=== PATIENT | male | born 1960 | race Caucasian/White ===

== ENCOUNTER 2020-05-08 11:24 | Outpatient (REF) | payer OTHER, SELFPAY ==
[2020-05-08 14:23] LABS: MANUAL DIFF FLAG NO
[2020-05-08 14:32] LABS: Basophils Absolute Auto 0.1 X10*3/uL (0.0-0.2); Basophils Percent Auto 0.6 % (0-2); Eosinophils Absolute Auto 0.2 X10*3/uL (0.0-0.4); Eosinophils Percent Auto 2.1 % (0-4); Hemoglobin 14.1 g/dl (14.0-18.0); Imm Gran Abs Auto 0.02 X10*3/uL (0.00-0.03); Imm Gran Pct Auto 0.3 % (0.0-0.4); Lymphocytes Absolute Auto 1.1 X10*3/uL (1.2-4.9); Lymphocytes Percent Auto 13.3 % (20-40); Mean Corpuscular HGB Conc 32.8 g/dl (31.0-36.0); Mean Corpuscular Hemoglobin 30.9 pg (27.0-33.0); Mean Corpuscular Volume 94.3 fL (80-98); Mean Platelet Volume 10.8 fL (9.4-12.4); Monocytes Absolute Auto 1.1 X10*3/uL (0.1-1.2); Monocytes Percent Auto 14.1 % (2-11); Neutrophils Absolute Auto 5.5 X10*3/uL (2.0-8.3); Neutrophils Percent Auto 69.6 % (45-73); Platelet Count 230 X10*3/uL (160-400); Red Blood Count 4.56 X10*6/uL (4.60-5.80); Red Cell Distribution Width 13.1 % (11.0-16.0)
[2020-05-08 15:15] LABS: Alanine Aminotransferase 10 U/L (0-40); Albumin Level 4.1 g/dL (3.5-5.0); Alkaline Phosphatase 108 U/L (39-117); Anion Gap 13 (12-20); Aspartate Amino Transferase 15 U/L (5-37); Bilirubin Total 0.2 mg/dL (0.0-1.0); Blood Urea Nitrogen 12 mg/dL (9-16); Calcium 8.8 mg/dL (8.4-10.2); Carbon Dioxide 30 mmol/L (22-29); Chloride 105 mmol/L (96-108); Estimated Glomerular Filt Rate > 60; Glucose Fasting 64 mg/dL (60-99); Sodium 144 mmol/L (135-145); Total Protein 6.3 g/dL (6.5-8.0)
== END 2020-05-08 11:25 | disposition home or self-care (01) ==
LOC: HO.10HDL 11:24
PROVIDERS: Visit Provider Internal Medicine
DX: Z01.818 Encounter for other preprocedural examination (principal); F90.9 Attention-deficit hyperactivity disorder, unspecified type; J30.1 Allergic rhinitis due to pollen; C61 Malignant neoplasm of prostate
CPT/HCPCS: 36415; 80053; 85025

== ENCOUNTER 2020-05-22 16:23 | Outpatient (REF) | payer OTHER, SELFPAY | END 2020-05-22 16:24 | disposition home or self-care (01) | LOC: HO.LNP 16:23 | PROVIDERS: Visit Provider Internal Medicine | DX: Z01.812 Encounter for preprocedural laboratory examination (principal); Z20.828 Contact with and (suspected) exposure to other viral communicable diseases | CPT/HCPCS: U0003 ==

== ENCOUNTER 2020-05-25 14:01 | Outpatient (REF) | payer OTHER, SELFPAY ==
[2020-05-25 14:46] LABS: Influenza A PCR NEGATIVE (Negative); Influenza B PCR NEGATIVE (Negative); Resp Syncy Virus RNA Qual PCR NEGATIVE (Negative); SARS COV2 PCR INHOUSE NEGATIVE (Negative)
== END 2020-05-25 14:02 | disposition home or self-care (01) ==
LOC: HO.LNP 14:01
PROVIDERS: Visit Provider Internal Medicine
DX: Z01.818 Encounter for other preprocedural examination (principal)
CPT/HCPCS: 0241U

== ENCOUNTER 2021-07-27 11:52 | Outpatient (REF) | payer OTHER, SELFPAY ==
[2021-07-27 13:40] LABS: MANUAL DIFF FLAG NO
[2021-07-27 13:44] LABS: Basophils Percent Auto 0.4 % (0-2); Eosinophils Absolute Auto 0.1 X10*3/uL (0.0-0.4); Eosinophils Percent Auto 0.5 % (0-4); Hematocrit 42.4 % (42.0-52.0); Hemoglobin 13.4 g/dl (14.0-18.0); Imm Gran Abs Auto 0.03 X10*3/uL (0.00-0.03); Imm Gran Pct Auto 0.3 % (0.0-0.4); Lymphocytes Absolute Auto 0.7 X10*3/uL (1.2-4.9); Lymphocytes Percent Auto 7.3 % (20-40); Mean Corpuscular HGB Conc 31.6 g/dl (31.0-36.0); Mean Corpuscular Volume 91.8 fL (80.0-98.0); Mean Platelet Volume 10.6 fL (9.4-12.4); Monocytes Absolute Auto 0.8 X10*3/uL (0.1-1.2); Monocytes Percent Auto 8.6 % (2-11); Neutrophils Percent Auto 82.9 % (45-73); Platelet Count 263 X10*3/uL (160-400); Red Blood Count 4.62 X10*6/uL (4.60-5.80); Red Cell Distribution Width 14.4 % (11.0-16.0); White Blood Count 9.6 X10*3/uL (4.8-10.8)
[2021-07-27 14:14] LABS: Alanine Aminotransferase 9 U/L (0-40); Albumin Level 4.3 g/dL (3.5-5.0); Alkaline Phosphatase 106 U/L (39-117); Anion Gap 12 (12-20); Aspartate Amino Transferase 16 U/L (5-37); Bilirubin Total 0.4 mg/dL (0.0-1.0); Blood Urea Nitrogen 11 mg/dL (9-16); Calcium 9.3 mg/dL (8.4-10.2); Carbon Dioxide 28 mmol/L (22-29); Chloride 104 mmol/L (96-108); Cholesterol 171 mg/dL; Estimated Glomerular Filt Rate > 60; Glucose Fasting 97 mg/dL (60-99); HDL Cholesterol 57 mg/dL; LDL Cholesterol Calculated 101 mg/dl; Sodium 140 mmol/L (135-145); Total Protein 6.7 g/dL (6.5-8.0); Triglycerides 65 mg/dL
== END 2021-07-27 11:53 | disposition home or self-care (01) ==
LOC: HO.10HDL 11:52
PROVIDERS: Visit Provider Internal Medicine
DX: Z00.00 Encounter for general adult medical examination without abnormal findings (principal)
CPT/HCPCS: 36415; 80053; 80061; 85025

== ENCOUNTER 2021-12-17 13:46 | Outpatient (REF) | payer OTHER, SELFPAY ==
--- NOTE | ~2021-12-17 | XR_ITS ---
EXAMINATION: XR CHEST CLINICAL INFORMATION: Weight loss. COMPARISON: None TECHNIQUE: 2 views of the chest were obtained. FINDINGS: The lungs are well-expanded and clear. Heart size and pulmonary vascularity is normal. No gross bony abnormality seen. XR/XR chest 2V IMPRESSION: Unremarkable chest examination.
[2021-12-17 14:03] LABS: MANUAL DIFF FLAG NO
[2021-12-17 14:35] LABS: Basophils Percent Auto 0.2 % (0-2); Eosinophils Absolute Auto 0.1 X10*3/uL (0.0-0.4); Eosinophils Percent Auto 0.9 % (0-4); Hematocrit 36.9 % (42.0-52.0); Hemoglobin 11.9 g/dl (14.0-18.0); Imm Gran Pct Auto 0.9 % (0.0-0.4); Lymphocytes Absolute Auto 0.6 X10*3/uL (1.2-4.9); Lymphocytes Percent Auto 5.7 % (20-40); Mean Corpuscular HGB Conc 32.2 g/dl (31.0-36.0); Mean Corpuscular Hemoglobin 28.8 pg (27.0-33.0); Mean Corpuscular Volume 89.3 fL (80.0-98.0); Mean Platelet Volume 9.8 fL (9.4-12.4); Monocytes Absolute Auto 0.9 X10*3/uL (0.1-1.2); Monocytes Percent Auto 8.2 % (2-11); Neutrophils Percent Auto 84.1 % (45-73); Platelet Count 333 X10*3/uL (160-400); Red Blood Count 4.13 X10*6/uL (4.60-5.80); Red Cell Distribution Width 14.1 % (11.0-16.0); White Blood Count 10.8 X10*3/uL (4.8-10.8)
[2021-12-17 14:57] LABS: Alanine Aminotransferase 27 U/L (0-40); Albumin Level 3.6 g/dL (3.5-5.0); Alkaline Phosphatase 138 U/L (39-117); Anion Gap 13 (12-20); Aspartate Amino Transferase 16 U/L (5-37); Bilirubin Total 0.5 mg/dL (0.0-1.0); Blood Urea Nitrogen 9 mg/dL (9-16); C Reactive Protein 9.15 mg/dL (< or = 0.50); Calcium 8.6 mg/dL (8.4-10.2); Carbon Dioxide 29 mmol/L (22-29); Chloride 101 mmol/L (96-108); Cholesterol 139 mg/dL; Estimated Glomerular Filt Rate > 60; Glucose Random 97 mg/dL (60-115); Potassium 4.6 mmol/L (3.3-5.1); Sodium 138 mmol/L (135-145); Total Protein 6.2 g/dL (6.5-8.0)
[2021-12-17 15:24] LABS: Free T4 (Free Thyroxine) 0.98 ng/dL (0.71-1.85); Prostate Specific Antigen < 0.05 ng/mL (<0.05-4.0); Thyroid Stimulating Hormone 0.59 uIU/mL (0.32-4.0)
[2021-12-17 16:13] LABS: Vitamin B12 387 pg/mL (200-900)
[2021-12-20 17:32] LABS: Lyme Blot 2.36 index
[2021-12-21 08:36] LABS: Lyme Abs Screen POSITIVE
[2021-12-22 12:11] LABS: 18 KD (IgG) Band NON-REACTIVE; 23 KD (IgG) Band NON-REACTIVE; 23 KD (IgM) Band REACTIVE; 28 KD (IgG) Band NON-REACTIVE; 30 KD (IgG) Band NON-REACTIVE; 39 KD (IgM) Band NON-REACTIVE; 39KD (IgG) Band NON-REACTIVE; 41 KD (IgM) Band NON-REACTIVE; 41KD (IgG) Band REACTIVE; 45 KD (IgG) Band NON-REACTIVE; 58 KD (IgG) Band NON-REACTIVE; 66 KD (IgG) Band NON-REACTIVE; 93 KD (IgG) Band NON-REACTIVE; Lyme IgG Blot Interp NEGATIVE (NEGATIVE); Lyme IgM Blot Interp NEGATIVE (NEGATIVE)
== END 2021-12-17 13:47 | disposition home or self-care (01) ==
LOC: HO.LAB 13:46
PROVIDERS: PCP Internal Medicine; Visit Provider Internal Medicine
DX: Z12.5 Encounter for screening for malignant neoplasm of prostate (principal); R63.4 Abnormal weight loss; R53.83 Other fatigue; R61 Generalized hyperhidrosis; Z85.46 Personal history of malignant neoplasm of prostate
CPT/HCPCS: 36415; 71046; 80053; 82465; 82607; 84153; 84439; 84443; 85025; 86140; 86617; 86618

== ENCOUNTER 2021-12-20 15:11 | Outpatient (REF) | payer OTHER, SELFPAY ==
--- NOTE | ~2021-12-20 | XR_ITS ---
EXAMINATION: XR LUMBOSACRAL SPINE CLINICAL INFORMATION: Back pain. COMPARISON: Radiographs dated 09/12/2019. TECHNIQUE: AP and lateral views of the lumbar spine and lateral view of the lumbosacral junction. FINDINGS: There is bony demineralization. There is a mild to moderate lumbar levoscoliosis. At L2-L3, there is marked disc space narrowing and a 5 mm retrolisthesis. At L4-L5, there is marked disc space narrowing. The remaining disc spaces are relatively well-maintained. This multi-level lumbar spondylosis. The posterior elements are intact. The paravertebral soft tissues are unremarkable. XR/XR lumbar spine 2-3V IMPRESSION: 1. There is a mild to moderate lumbar levoscoliosis. 2. There is marked degenerative disc disease at L2-L3 and L4-L5.
== END 2021-12-20 15:12 | disposition home or self-care (01) ==
LOC: HO.XRAY 15:11
PROVIDERS: PCP Internal Medicine; Visit Provider Internal Medicine
DX: M54.9 Dorsalgia, unspecified (principal); R21 Rash and other nonspecific skin eruption; D64.9 Anemia, unspecified
CPT/HCPCS: 72100

== ENCOUNTER 2022-02-10 13:40 | Observation (INO) | payer OTHER, SELFPAY ==
--- NOTE | ~2022-02-10 | MR_ITS ---
EXAMINATION: MR BRAIN WITHOUT AND WITH CONTRAST CLINICAL INFORMATION: vascular lesion r temporal with acute diplopia COMPARISON: Same day CT head without contrast TECHNIQUE: Multiplanar multisequence MR imaging of the brain was obtained on the high field 1.5 [facility] MRI unit without and following the administration of 7.5 mL Gadavist intravenous contrast. FINDINGS: Corresponding to the region of hyperdensity in the right parietal lobe, there is a heterogeneous and predominantly T2 hypointense lesion which appears lobulated and possibly reflects clustering of several lesions. This demonstrates areas of intrinsic T1 hyperintensity and no definite intralesional enhancement. There is enhancement of a medullary vein along the deep aspect of the lesion as well as an asymmetrically prominent adjacent cortical vessel, possibly reflecting the presence of a developmental venous anomaly. Susceptibility weighted imaging demonstrates significant blooming. Imaging findings are in keeping with one or multiple clustered cavernoma. There are no prominent arterial feeders to suggest an arterial venous malformation. No perilesional edema to suggest recent hemorrhage. There is a lesion measuring up to 1.1 cm with similar imaging characteristics in the left dorsal marcelino, also likely representing a cavernoma. Additional scattered foci of susceptibility artifact involving the supratentorial brain and left cerebellar hemisphere may reflect additional cavernoma and/or remote microhemorrhage. There is no acute infarct on diffusion-weighted imaging. There is no hydrocephalus, extra-axial collection, or herniation. Mild microangiopathic supratentorial white matter signal changes. Proportional prominence of the ventricles and sulcal spaces without evidence of obstructive hydrocephalus. No abnormal parenchymal or extra-axial enhancement. The major flow voids at the skull base are preserved. The midline structures are normal. The cerebellar tonsils are normally positioned. The craniocervical junction is normal. Marrow signal is within normal limits. The visualized soft tissues are without significant abnormality. No signal abnormality within the paranasal sinuses or within the mastoid air cells. MR/MR head/brain wo/w con IMPRESSION: 1. 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 No perilesional edema to suggest recent hemorrhage. 2. 1.1 cm lesion in the left dorsal marcelino also demonstrates imaging characteristics compatible with cavernoma. 3. There are multiple additional foci of susceptibility artifact in the supratentorial brain and one in the left cerebellar hemisphere which are also suspicious for cavernoma. Correlate for cavernomatosis or history of radiation therapy as possible etiologies.
--- NOTE | ~2022-02-10 | CT_ITS ---
EXAMINATION: CT HEAD WITHOUT CONTRAST CLINICAL INFORMATION: Diplopia COMPARISON: None TECHNIQUE: Contiguous axial imaging was performed from the skull base to vertex without intravenous administration of contrast. This CT examination was performed using dose optimization techniques as appropriate, variously including the following: *Automated exposure control *Adjustment of mA and/or kV according to patient size (this includes techniques or standardized protocols for targeted exams where dose is matched to indication/reason for exam; i.e. extremities or head) *Use of iterative reconstruction technique DLP: 764 mGy-cm FINDINGS: There is a 5 mm hypodensity likely calcification or combination of calcification bleed measuring 92 Hounsfield units in the deep right parietal lobe. There is surrounding the hypodensity extending to subjacent cortex and measuring 72 Hounsfield units there is very little to no mass effect on the adjacent cortical sulci. There are no additional areas of hyperdensity, edema or midline shift. The cortical sulci are maintained normal and symmetrical. The boone to white matter differentiation is maintained normal. There is no extra-axial fluid, hemorrhage. Imaging through the posterior fossa reveals a punctate hyperdensity in the left posterior marcelino and anterior to the fourth ventricle. Bone windows reveal no calvarial abnormality. There is no scalp soft tissue abnormality. Bilateral paranasal sinuses and mastoid air cells are well-aerated. CT/CT head/brain wo con IMPRESSION: 2 hypodense lesions in the right deep parietal lobe extending superiorly to the cortex but no mass effect seen. There is a second lesion in the posterior marcelino anterior to the fourth ventricle. Differential diagnoses includes hemorrhage or hemorrhagic or hyperdense vascular lesion, such as a capillary/cavernous hemangioma or vascular formation.. There is no edema or mass effect. Recommend MRI brain with and without contrast for further evaluation.
[2022-02-10 14:09] VITALS: BP 134/81; PULSE 93; RESP 18; TEMP 36.8; O2SAT 97; BMI 22.1
[2022-02-10 18:13] VITALS: BP 138/86; PULSE 70; RESP 16; O2SAT 100
--- NOTE | 2022-02-10 18:19 | ECG_ITS ---
Test Reason : ams Blood Pressure : / mmHG Vent. Rate : 064 BPM Atrial Rate : 064 BPM P-R Int : 128 ms QRS Dur : 080 ms QT Int : 410 ms P-R-T Axes : 045 052 047 degrees QTc Int : 422 ms Normal sinus rhythm Normal ECG No previous ECGs available Referred By: Harvey óLpez Electronically Signed By:NAIMA BOUCHER
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
[2022-02-10 19:31] LABS: Hematocrit 41.5 % (42.0-52.0); Hemoglobin 13.2 g/dl (14.0-18.0); Mean Corpuscular HGB Conc 31.8 g/dl (31.0-36.0); Mean Corpuscular Hemoglobin 27.5 pg (27.0-33.0); Mean Corpuscular Volume 86.5 fL (80.0-98.0); Mean Platelet Volume 10.2 fL (9.4-12.4); Platelet Count 237 X10*3/uL (160-400); Red Cell Distribution Width 14.7 % (11.0-16.0); White Blood Count 8.1 X10*3/uL (4.8-10.8)
[2022-02-10 19:40] LABS: Prothrombin Time 11.5 SEC (10.0-13.1)
[2022-02-10 19:48] LABS: Alanine Aminotransferase 25 U/L (0-40); Albumin Level 4.3 g/dL (3.5-5.0); Alkaline Phosphatase 104 U/L (39-117); Anion Gap 16 (12-20); Aspartate Amino Transferase 18 U/L (5-37); Bilirubin Total 0.4 mg/dL (0.0-1.0); Blood Urea Nitrogen 11 mg/dL (9-16); Calcium 9.1 mg/dL (8.4-10.2); Carbon Dioxide 27 mmol/L (22-29); Chloride 104 mmol/L (96-108); Creatinine Clr Calc Pharmacy 77.1; Estimated Glomerular Filt Rate > 60; Glucose Random 95 mg/dL (60-115); Potassium 5.4 mmol/L (3.3-5.1); Sodium 142 mmol/L (135-145); Total Protein 6.5 g/dL (6.5-8.0)
[2022-02-10 19:49] LABS: COVID-19 Test Negative (Negative)
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
[2022-02-10] MEDS: Enoxaparin Sodium 40 MG/0.4 ML SYRINGE SUBCUT (22:51)
[2022-02-10] MEDS: levETIRAcetam 500 MG TABLET PO (22:51)
[2022-02-10 23:30] VITALS: BP 135/82; PULSE 98; RESP 16; O2SAT 97
--- NOTE | 2022-02-11 | EEG_ITS ---
The waking background activity consists of low voltage fast frequencies seen diffusely, intermixed with posterior 9 to 10 hertz low-voltage alpha. Photic stimulation is without activation. Hyperventilation was omitted. No sleep stages were identified. No focal, lateralizing, or paroxysmal discharges were seen. IMPRESSION: This waking EEG is within normal limits. MD HAYLEE Hernandez/SANDRA / [id number]
[2022-02-11 04:17] VITALS: BP 128/85; PULSE 66; RESP 15; O2SAT 98
[2022-02-11 06:23] VITALS: BP 134/88; PULSE 65; RESP 15; O2SAT 95
[2022-02-11 06:49] LABS: MANUAL DIFF FLAG NO
[2022-02-11 07:03] LABS: Basophils Absolute Auto 0.1 X10*3/uL (0.0-0.2); Basophils Percent Auto 1.3 % (0-2); Eosinophils Absolute Auto 0.1 X10*3/uL (0.0-0.4); Eosinophils Percent Auto 2.2 % (0-4); Hematocrit 39.7 % (42.0-52.0); Hemoglobin 12.4 g/dl (14.0-18.0); Imm Gran Abs Auto 0.02 X10*3/uL (0.00-0.03); Imm Gran Pct Auto 0.4 % (0.0-0.4); Lymphocytes Absolute Auto 1.4 X10*3/uL (1.2-4.9); Lymphocytes Percent Auto 25.5 % (20-40); Mean Corpuscular HGB Conc 31.2 g/dl (31.0-36.0); Mean Corpuscular Hemoglobin 26.8 pg (27.0-33.0); Mean Corpuscular Volume 85.7 fL (80.0-98.0); Mean Platelet Volume 10.5 fL (9.4-12.4); Monocytes Absolute Auto 0.7 X10*3/uL (0.1-1.2); Monocytes Percent Auto 13.3 % (2-11); Neutrophils Absolute Auto 3.1 x10*3/uL (2.0-8.3); Neutrophils Percent Auto 57.3 % (45-73); Platelet Count 228 X10*3/uL (160-400); Red Blood Count 4.63 X10*6/uL (4.60-5.80); Red Cell Distribution Width 14.8 % (11.0-16.0); White Blood Count 5.5 X10*3/uL (4.8-10.8)
[2022-02-11 07:35] LABS: Anion Gap 13 (12-20); Blood Urea Nitrogen 13 mg/dL (9-16); Calcium 8.6 mg/dL (8.4-10.2); Carbon Dioxide 28 mmol/L (22-29); Chloride 105 mmol/L (96-108); Creatinine Clr Calc Pharmacy 71.9; Estimated Glomerular Filt Rate > 60; Glucose Random 93 mg/dL (60-115); Potassium 4.5 mmol/L (3.3-5.1); Sodium 141 mmol/L (135-145)
--- NOTE | 2022-02-11 07:52 | PHA.MEDREC ---
Pharmacy Consult ? Medication Reconciliation Pharmacy has completed the medication reconciliation. Patient was a great historian. Important to note, patient takes lion's lena OTC every day, however this supplement is not in our system.
[2022-02-11 08:22] VITALS: BP 119/69; PULSE 78; RESP 15; O2SAT 99
[2022-02-11] MEDS: levETIRAcetam 500 MG TABLET PO (11:26)
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
[2022-02-11 14:36] VITALS: BP 116/72; PULSE 79; RESP 18; O2SAT 96
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
== END 2022-02-11 17:10 | disposition home or self-care (01) ==
LOC: HO.ED 22:05 → HO.EDOVER 22:26
PROVIDERS: Admitting Provider Internal Medicine; Emergency Provider Internal Medicine; PCP Internal Medicine; Visit Provider Family Medicine
DX: R41.0 Disorientation, unspecified (principal); H53.2 Diplopia; D18.00 Hemangioma unspecified site; G93.9 Disorder of brain, unspecified; Z20.822 Contact with and (suspected) exposure to COVID-19; F17.200 Nicotine dependence, unspecified, uncomplicated; F12.90 Cannabis use, unspecified, uncomplicated; Z85.46 Personal history of malignant neoplasm of prostate; Z79.899 Other long term (current) drug therapy
CPT/HCPCS: 36415; 70450; 70553; 80048; 80053; 85025; 85027; 85610; 87635; 93005; 95816; 96372; 96374; 99219; 99285; A9585; J1650

== ENCOUNTER 2022-03-01 12:34 | Outpatient (REF) | payer OTHER, SELFPAY ==
--- NOTE | 2022-03-01 12:40 | EEG_ITS ---
Waking background activity consists of low voltage fast frequencies seen diffusely, intermixed with low voltage, 10 hertz posterior alpha intermixed with muscle artifacts anteriorly. Drowsiness is characterized with diffuse theta slowing. During sleep, symmetrical frontocentral sleep spindles develop over both hemispheres. K complexes and deeper stages of sleep are noted. Arousals are frequent and unremarkable. No focal, lateralizing, or paroxysmal discharges are seen. The patient remains asymptomatic. IMPRESSION: This 24-hour ambulatory EEG is within normal limits. MD HAYLEE Hernandez/SANDRA / [id number]
== END 2022-03-01 12:35 | disposition home or self-care (01) ==
LOC: HO.NEURO 12:34
PROVIDERS: PCP Internal Medicine; Visit Provider Psychiatry & Neurology Neurology
DX: D18.01 Hemangioma of skin and subcutaneous tissue (principal)
CPT/HCPCS: 95708; 95957

== ENCOUNTER 2023-07-05 11:54 | Outpatient (REF) | payer OTHER, SELFPAY | END 2023-07-05 11:55 | disposition home or self-care (01) | LOC: HO.LAB 11:54 | PROVIDERS: PCP Internal Medicine; Visit Provider Internal Medicine | DX: D64.9 Anemia, unspecified (principal); G40.909 Epilepsy, unspecified, not intractable, without status epilepticus | CPT/HCPCS: 36415; 80053; 81003; 83540; 84153; 85025 ==

== ENCOUNTER 2025-03-19 13:53 | Outpatient (AMB) | payer MEDICARE, SELFPAY ==
--- NOTE | 2025-03-19 13:56 | A.OFFPC_ITS ---
Vital Signs 03/19/25 14:02 Height 5 ft 9 in Weight 165 lb BMI 24.4 BP 124/64 Blood Pressure Location Rt brachial Position Sitting Respiration 18 Pulse 74 Pulse Source Pulse Oximeter Temp 97.8 F Temp Source Temporal Artery Scan Pulse Oximetry (%) 99 Oxygen Delivery Method Room Air Intake Visit Reasons: Physical - Croke pt. Auto Electrical Technician Required: No Accompanied by: Self / Same As Patient Allergies No Known Allergies (No Known Allergies*) Allergy (Verified 03/19/25 13:56) Medication List - Last Reconciled 03/19/25 by Jameson Moody MD multivitamin 1 tab PO DAILY Tobacco use date assessed: 03/19/25 Dental Screening Dental Screen Date: 03/19/25 Did you have a dental visit in the last 12 months?: No Did you have a dental problem in the last 6 months where you did not have access to dental care?: No Was dental information given to patient?: Patient has dentist HPI HPI Comments History of Present Illness Details The patient is a 65-year-old male presenting with a follow-up for prostate cancer, a request for a PSA test, and management of erectile dysfunction and urinary incontinence. The patient believes this year rizo five years since the diagnosis and treatment for prostate cancer with a radical prostatectomy, which he underwent following the presentation of a Yelitza score of 7. Postoperatively, he states his PSA levels were undetectable, primarily less than 0.1 ng/mL. Alongside monitoring prostate cancer status, he expresses an interest in resuming sildenafil for erectile dysfunction, which he associates with improved continence, describing a perceived link in symptomatic relief. He contends daily use was beneficial, although aware it may exacerbate hypotension, which he notes is not currently a concern without history of hypertension. Historically, the patient experienced partial seizures in correlation with the usage of lamotrigine, reportedly coinciding with high-stress instances and inappropriate dosage timing. He currently abstains from the medication. Additionally, he has a notable neurological history of cerebral cavernomas identified as congenital, with imaging initially repeated after seizures showing no change. Monitoring protocol by his neurologist was every five years. Psychiatric history includes diagnoses of Complex PTSD, Major Depressive Disorder, and ADHD. PTSD was recognized approximately five years ago, following evaluation influenced by clinician observations. He previously attempted multiple medications for anxiety and depression without enduring success, including trazodone, while noting effectiveness from self-administered psilocybin therapy, praising its impact on mental health, anxiety, and sleep quality. 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 - Cerebral cavernomas (congenital) - Complex Post-Traumatic Stress Disorder (CPTSD) - Major Depressive Disorder - Attention Deficit Hyperactivity Disord er (ADHD) - Anxiety disorder - Dyslexia Surgical History: - Radical prostatectomy Medications: - Psilocybin 0.5 mg, 5 days on, 2 days o ff for mood stabilization and sleep (self-administered) Family History: - Colon cancer in multiple family member s - Heart disease with bypass surgery on t he mother's side - Brother with prediabetes Diagnostic Results: - PSA level < 0.1 ng/mL (undetectable fr om last year?s test) - Cerebral cavernomas (stable on imaging ) - Colonoscopy every five years since age 33 Social: - Employment: Previously in the [employer] for 25 years, currently works with traumatic brain injury (TBI) patients - Housing: Resides in [facility] a safe living environment - Tobacco use: Historical use, now uses nicotine pouches, denied smoking - Alcohol use: Denies alcohol use for th e past 10 years - Substance use: Historical prescription medication use, current psilocybin use for psychiatric disorders - Functional status: Active in performin g urinary exercises and maintaining functional independence - Family status: No details provided [facility] Medical History (Updated 03/19/25 @ 14:30 by Jameson Moody MD) Urinary incontinence Erectile dysfunction PTSD (post-traumatic stress disorder) Establishing care with new doctor, encounter for History of prostate cancer Surgical History (Updated 02/11/22 @ 06:25 by Flavio Gagnon MD) History of prostatectomy Family History (Updated 02/11/22 @ 06:26 by Flavio Gagnon MD) Other No family history of coronary artery disease Social History Housing: Apartment Alcohol intake: never Patient Tobacco Use Status: Current everyday Tobacco user (nicotine pouches) e-Cigarette/Vaping Use: Never Used Substance Use Type: Marijuana service: No Current occupational status: employed Current occupation: [employer] Questionnaire PHQ-9 Over the last 2 weeks, how often have you been bothered by any of the following problems? 1. Little interest or pleasure in doing things: not at all 2. Feeling down, depressed, or hopeless: not at all 3. Trouble falling or staying asleep, or sleeping too much: not at all 4. Feeling tired or having little energy: not at all 5. Poor appetite or overeating: not at all 6. Feeling bad about yourself - or that you are a failure or have let yourself or your family down: not at all 7. Trouble concentrating on things, such as reading the newspaper or watching television: not at all 8. Moving or speaking so slowly that other people could have noticed. Or the opposite - being so fidgety or restless that you have been moving around a lot more than usual: not at all 9. Thoughts that you would be better off or of hurting yourself in some way: not at all Total score: 0 Depression Screening Interpretation: Negative Depression Screening Done: Yes 77551 - PHQ-9 Billing: Yes Source: Developed by Drs. Phillip Rendon, Josephine Myers, Baljeet Fernandez and colleagues, with an educational oniel from [employer]. Thrive Questionnaire Date Thrive assessed: 03/19/25 I am a: Patient What is your living situation today?: I have a steady place to live Within the past 12 months, did the food you bought not last and you didn't have the money to get more?: Never true Within the past 12 months, did you worry whether your food would run out before you got money to buy more?: Never true Do you have trouble paying for medicines?: No Do you have trouble getting transportation to medical appointments?: No Do you have trouble paying your heating and electricity bill?: No Do you have trouble taking care of your child, family member or friend?: No Do you have trouble with day-to-day activities such as bathing, preparing meals, shopping, managing finances, etc.?: No Are you currently unemployed and looking for a job?: No Are you interested in more education?: No THRIVE Score: 0 AUDIT C Alcohol Use Questionnaire (AUDIT-C) 1. How often do you have a drink containing alcohol?: Never 3. How often do you have six or more drinks on one occasion?: Never Total Score: 0 Score Reviewed/Action Taken: Yes ROB-7 AMB Questionnaire ORB-7 Date ROB - 7 assessed: 03/19/25 Feeling nervous, anxious, or on edge: 0 = Not at all Not being able to stop or control worryin = Not at all Worrying too much about different things: 0 = Not at all Trouble relaxin = Not at all Being so restless that it is hard to sit still: 0 = Not at all Becoming easily annoyed or irritable: 0 = Not at all Feeling afraid as if something awful might happen: 0 = Not at all Total ROB-7 score (0-4 normal; 5-9 mild; 10-14 moderate; 15-21 severe): 0 Source: Developed by Drs. Phillip Rendon, Josephine Myers, Baljeet Fernandez and colleagues, with an educational oniel from [employer]. ROB-7 Assessment Billing ROB-7 Assessment Tool: ROB-7 Assessment 04356 Review of Systems Const Details: - Genitourinary: Reports urinary incontinence and erectile dysfunction - Neurological: Denies seizures since lamotrigine discontinuation, has history of partial seizures - Psychiatric: Reports history of depression, PTSD, and ADHD All systems reviewed & are unremarkable except as reviewed in HPI and above Physical exam (Primary Care) Vital Signs: Last Vital Signs Temp 97.8 F 03/19/25 14:02 Pulse 74 03/19/25 14:02 Resp 18 03/19/25 14:02 BP 124/64 03/19/25 14:02 Pulse Ox 99 03/19/25 14:02 Oxygen Delivery Method Room Air 03/19/25 14:02 BMI result Body Mass Index 24.4 Tobacco/Smoking Status: Tobacco use Status Tobacco use date assessed 03/19/25 03/19/25 14:04 Patient Tobacco Use Status Current everyday Tobacco ( 03/19/25 14:04 nicotine pouches) e-Cigarette/Vaping Use Never Used 03/19/25 14:04 Depression Screening Interpretation: Negative Const Other: General: +Alert and oriented, Well nourished, No acute distress. Eye: Pupils are equal, round and reactive to light, Intact accommodation, Extraocular movements are intact, Normal conjunctiva, Vision unchanged. HENT: Normocephalic, Atraumatic, Tympanic membranes are clear, Normal hearing, Oral mucosa is moist, No pharyngeal erythema, Ear canals patent. Respiratory: Lungs CTA bilaterally, No wheeze, Respirations are non-labored. Cardiovascular: Regular rate, Regular rhythm, S1 auscultated, S2 auscultated, No murmur, Good pulses equal in all extremities, Normal peripheral perfusion, No edema. Gastrointestinal: Soft, Non-tender, Non-distended, Normal bowel sounds, No organomegaly. Musculoskeletal: Normal range of motion, Normal strength, No tenderness, No swelling, No deformity, Normal gait. Integumentary: Warm, Dry, Daphne, Intact. Neurologic: Alert, Oriented, Normal sensory, Normal motor function, No focal defects, Cranial Nerves II-XII are grossly intact, Normal deep tendon reflexes. Psychiatric: Cooperative, Appropriate mood & affect, Normal judgment. Coding Level of Care Code New Pt Level 4 (72652) New Pt Prev Care 40-64y(34140) Diagnoses Establishing care with new doctor, encounter for Z76. Seizure R56.9 Cavernoma D18.00 PTSD (post-traumatic stress disorder) F43.10 History of prostate cancer Z85.46 Erectile dysfunction after radical prostatectomy N52.31 Erectile dysfunction type: post-procedural Post-procedural erectile dysfunction type: following radical prostatectomy Urinary incontinence, unspecified type R32 Urinary Incontinence type: unspecified incontinence Additional Codes PHQ-9 - 02865 - PHQ-9 Billing: Yes ([id number]) ROB-7 Assessment Billing - ROB-7 Assessment Tool: ROB-7 Assessment 30977 ([id number]) Assessment & Plan Assessment & Plan (1) Establishing care with new doctor, encounter for: Comment: - Obtain baseline labs Code(s): Z76.89 - Persons encountering health services in other specified circumstances Category: Medical (2) Seizure: Comment: - Reviewed history, noted presumed lamotrigine correlation. - Continue monitoring without anticonvulsant medication. - Maintain periodic neurological evaluations every five years per neurologist. Code(s): R56.9 - Unspecified convulsions Category: Medical (3) Cavernoma: Comment: - Continued monitoring every 5 years per neurology Code(s): D18.00 - Hemangioma unspecified site Category: Medical (4) PTSD (post-traumatic stress disorder): Comment: - Discussed patient's positive response to microdose psilocybin therapy (self-a dministered). - Acknowledged patient's reports of improved anxiety and mental health following treatment. Code(s): F43.10 - Post-traumatic stress disorder, unspecified Category: Medical (5) History of prostate cancer: Comment: - Plan to further monitor PSA levels to ensure stability and absence of disease recurrence. - Order PSA test as requested by the patient. Code(s): Z85.46 - Personal history of malignant neoplasm of prostate Category: Medical (6) Erectile dysfunction: Comment: - Discussed sildenafil benefits and risks, noting its potential impact on blood pressure. - Patient interested in tadalafil; prescription provided as patient reports no effect with sildenafil. Code(s): N52.9 - Male erectile dysfunction, unspecified Category: Medical Qualifiers: Erectile dysfunction type: post-procedural Post-procedural erectile dysfunction type: following radical prostatectomy Qualified Code(s): N52.31 - Erectile dysfunction following radical prostatectomy (7) Urinary incontinence: Comment: - Recommended behavioral modifications with scheduled voiding for bladder control. - Patient to engage in pelvic exercises; further pharmacological treatment was not deemed beneficial according to current evidence discussed. (Wanting tadalafil for urinary incontience) Code(s): R32 - Unspecified urinary incontinence Category: Medical Qualifiers: Urinary Incontinence type: unspecified incontinence Qualified Code(s): R32 - Unspecified urinary incontinence Plan: Health Maintenance: - Colonoscopy due every five years; order as next procedure is overdue. - Screenings and labs including hepatitis, HIV, cholesterol, TSH, and vitamin D, to ensure comprehensive preventative care. Plan During the consultation, we discussed the patient's primary concerns related to follow-up care post-prostate cancer treatment, including PSA monitoring and long-term management. We addressed erectile dysfunction and urinary incontinence, elucidating the role of pharmacotherapy, particularly tadalafil, while emphasizing non-pharmacologic approaches for incontinence. Our conversation touched on his use of psilocybin as an alternative therapy for psychiatric disorders, recognizing its unconventional status but acknowledging reported efficacy and ensuring the patient is stable. I provided detailed insights into the implications of medication choices, particularly emphasizing the importance of blood pressure monitoring with PDE5 inhibitors. I also addressed health maintenance priorities, including the necessity of a colonoscopy in light of his family history and the scheduled lab work to establish a comprehensive health baseline. Follow-up arrangements were scheduled, ensuring continuity of care and timely health interventions. Orders: Orders Hepatitis A,B,C Profile Today Z76.89 - Persons encountering health services in other specified circumstances HIV Ab/Ag Today Z76.89 - Persons encountering health services in other specified circumstances Syphilis Screen Today Z76.89 - Persons encountering health services in other specified circumstances Complete Blood Count Auto Diff Today Z76.89 - Persons encountering health services in other specified circumstances Comprehensive Met. Panel Today Z76.89 - Persons encountering health services in other specified circumstances Hemoglobin A1c Today Z76.89 - Persons encountering health services in other specified circumstances Lipid Panel Today Z76.89 - Persons encountering health services in other specified circumstances TSH reflex Free T4 Today Z76.89 - Persons encountering health services in other specified circumstances Vitamin D 25-OH Total Today Z76.89 - Persons encountering health services in other specified circumstances PSA,Total (Free>4and<10) Today Z76.89 - Persons encountering health services in other specified circumstances Referrals Open Access Screening Colonoscopy Referral Z12.11 - Encounter for screening for malignant neoplasm of colon, Z76.89 - Persons encountering health services in other specified circumstances Medications: New tadalafil (Cialis) administer approximately 30min before sexual activity; do not use more than 1 dose per 24hrs 10 mg PO DAILY PRN 20 tabs 0RF sexual activity Discontinued lamotrigine Discontinued Reason: Patient Completed Course 100 mg PO BID 60 tabs 0RF Patient Instructions: - Continue monitoring PSA levels as advised; await lab results. - Engage in behavioral exercises to manage urinary incontinence; scheduled voiding is encouraged. - Use tadalafil as prescribed; notify if issues arise. - Prioritize upcoming colonoscopy scheduling. - Maintain safety and report any changes in mood or health right away. - Follow up in six months for a comprehensive review of health status.
[2025-03-19 14:02] VITALS: BP 124/64; PULSE 74; RESP 18; TEMP 36.6; O2SAT 99; BMI 24.4
--- OUTSIDE RECORDS SUMMARY | 2025-03-19 17:33 | XMS_ITS | Encounter Summary ---
Author Organization [facility] Address [address] [place] [address] Care Team Providers Care Rn Oncology Clinical Name Role Phone Olivier Jimenez MD Primary Care Provider [phone] Cindy Kent PhD Unavailable Reason for Visit * Reason Comments Other Encounter Details Date Type Department Care Team ([facility] st Contact Info) Description 05/05/2020 Telephone [facility] Urologic Surgery [address] [address] Lincoln Lezama MD [address] [id number] Other Social History Tobacco Use Types Packs/Day Years Used Date Smoking Tobacco: Former Smokeless Tobacco: Never Alcohol Use Standard Drinks/Week Comments Not Currently 0 (1 standard drink = 0.6 oz pur e alcohol) none in 3 years Sex and Gender Information Value Date Recorded Sex Assigned at Not on file Legal Sex Male 3:20 PM EDT Gender Identity Not on file Sexual Orientation Not on file COVID-19 Exposure Response Date Recorded In the last month, have you been in contact with someone who was confirmed or suspected to have Coronavirus / COVID-19? Unable to assess 05/05/2020 12:37 PM EST documented as of this encounter Plan of Treatment Not on file documented as of this encounter Visit Diagnoses Not on filedocumented in this encounter Care Teams Rn Oncology Clinical Relationship Specialty Start Date End Date Olivier Jimenez MD [address] [place] [address] [place] [address] PCP - General 01/22/20 Cindy Kent, PhD [address] [place] [address] Psychology 06/15/20 documented as of this encounter
--- OUTSIDE RECORDS SUMMARY | 2025-03-19 17:33 | XMS_ITS | Clinical Summary ---
Author Organization [facility] Address [address] [address] Phone Care Team Providers Care Health Center Assistant Name Role Phone Unknown, Unknown Primary Care Provider Bessie blood Allergies No known active allergies Medications * This document contains information received from the source organization and may not represent a complete record from that organization. traZODone (DESYREL) 50 MG tablet Take 1 tablet (50 mg total) by mouth nightly. 30 tablet 06/25/2017 Active venlafaxine (EFFEXOR-XR) 150 MG 24 hr capsule Take 1 capsule (150 mg total) by mouth daily. 30 capsule 06/25/2017 Active nicotine polacrilex (NICORETTE) [address] 1 each (2 mg total) inside cheek every 2 (two) hours as needed for smoking cessation. 100 each 06/25/2017 Active folic acid (FOLVITE) 1 MG tablet Take 1 tablet (1 mg total) by mouth daily. 30 tablet 06/25/2017 Active multivitamin per tablet Take 1 tablet by mouth daily. 30 tablet 06/25/2017 Active Active Problems Problem Noted Date Diagnosed Date Severe major depression 06/16/2017 Alcohol dependence 06/16/2017 Social History Tobacco Use Types Packs/Day Years Used Date Smoking Tobacco: Former Smokeless Tobacco: Current Alcohol Use Standard Drinks/Week Comments Yes 0 (1 standard drink = 0.6 oz pur e alcohol) several per day Education Answer Date Recorded Are you interested in more education? Not on iker e 10/28/2022 Are you concerned about learning? Not on file 10/28/2022 No 10/28/2022 No 10/28/2022 Digital Access Answer Date Recorded No 11/26/2022 No 11/26/2022 No 11/26/2022 Reliable internet access at home? Not on file 11/26/2022 Device with a working camera? Not on file Sex and Gender Information Value Date Recorded Sex Assigned at Not on file Legal Sex Male 4:59 PM EST Gender Identity Not on file Sexual Orientation Not on file Last Filed Vital Signs Vital Sign Reading Time Taken Comments Blood Pressure 149/91 06/24/2017 8:22 AM EST Pulse 92 06/24/2017 8:22 AM EST Temperature 36.7 C (98.1 F) 06/24/2017 8:22 AM EST Respiratory Rate 16 06/24/2017 8:22 AM EST Oxygen Saturation 97% 06/24/2017 8:22 AM EST Inhaled Oxygen Concentration - - Weight 72.6 kg (160 lb) 06/20/2017 11:00 PM EST Height 172.7 cm (5' 7.99 ) 06/16/2017 1:23 AM ES T Body Mass Index 24.33 06/16/2017 1:23 AM EST Plan of Treatment Health Maintenance Due Date Last Done Comments LIPID PANEL 1962 DEPRESSION SCREENING 1974 SMOKING Hx and SMOKELESS TOBACCO SCREENING 1975 HEPATITIS C SCREENING 01/05/1980 HIV ONE-TIME SCREENING (18-6 5 YEARS) 01/05/1980 COLOGUARD 2007 COLONOSCOPY 2007 COLORECTAL CANCER SCREENING 2007 FIT TEST 2007 FOBT 2007 SIGMOIDOSCOPY 2007 VIRTUAL COLONOSCOPY 2007 PNEUMOCOCCAL VACCINES (50+ years) (1 of 1 - PCV) 01/05/2012 ZOSTER VACCINES (2 of 2) 10/30/2020 09/04/2020 Adult Td,Tdap Booster 07/30/2022 07/30/2012 , 07/05/2001 INFLUENZA VACCINE (#1) 2025 COVID-19 VACCINE (3 - 2024-2 6 season) 2025 08/10/2020, 07/20/2020 RSV VACCINE (1 - 1-dose 75+ series) 2037 HEPATITIS A VACCINES Aged Out No long er eligible based on patient's age to complete this topic HIB VACCINES Aged Out No longer eligi ble based on patient's age to complete this topic MENINGOCOCCAL VACCINES (ACWY) Aged Out No longer eligible based on patient's age to complete this topic MENINGOCOCCAL VACCINES (B) Aged Out N o longer eligible based on patient's age to complete this topic Medical Devices Not on file Insurance [employer] [employer] [place] [employer] [place] [employer] [place] [employer] [employer] [employer] [facility] Advance Directives For more information, please contact: [phone] (9AM - 5PM [facility], Monday-Monday) * Full Code (Presumed) (Latest Code Status on File) Date Activated Date Inactivated Comments 06/16/2017 12:25 AM 06/25/2017 12:41 PM Care Teams Health Center Assistant Relationship Specialty Start Date End Date Unknown, Unknown, PCP - General 06/15/17 Additional Source Comments The information contained in this document represents components of the legal health record. It is not the complete legal health record.[facility]
--- OUTSIDE RECORDS SUMMARY | 2025-03-19 17:33 | XMS_ITS | Encounter Summary ---
Author Organization [facility] Address [address] [place] [address] Care Team Providers Care Liquor Bridge Operator Name Role Phone Olivier Jimenez MD Primary Care Provider [phone] Cindy Kent PhD Unavailable Encounter Details Date Type Department Care Team (Late st Contact Info) Description 05/25/2020 Telephone [facility] Urologic Surgery [place] [address] [address] Lincoln Lezama MD [address] [address] Social History Tobacco Use Types Packs/Day Years Used Date Smoking Tobacco: Former Smokeless Tobacco: Current Alcohol Use Standard Drinks/Week Comments Not Currently [...] or suspected to have Coronavirus / COVID-19? No / Unsure 05/26/2020 9:29 AM EST documented as of this encounter Plan of Treatment Not on file documented as of this encounter Visit Diagnoses Not on filedocumented in this encounter Care Teams Liquor Bridge Operator Relationship Specialty Start Date End Date Olivier Jimenez MD [address] [place] [address] [place] [address] PCP - General 01/22/20 Cindy Kent, PhD [address] [place] [address] Psychology 06/15/20 documented as of this encounter
--- OUTSIDE RECORDS SUMMARY | 2025-03-19 17:33 | XMS_ITS | Encounter Summary ---
Author Organization [facility] Address [address] [place] [address] Care Team Providers Care Citrus Picker Name Role Phone Olivier Jimenez MD Primary Care Provider [phone] Cindy Kent PhD Unavailable Encounter Details Date Type Department Care Team (Late st Contact Info) Description 01/30/2020 Scanned Document [facility] Urologic Surgery [address] [address] Olivier Jimenez MD [address] [place] [address] [place] [address] Social History Tobacco Use Types Packs/Day Years Used Date Smoking Tobacco: Never Assessed Sex and Gender Information Value Date Recorded Sex Assigned at Not on file Legal Sex Male 3:20 PM EDT Gender Identity Not on file Sexual Orientation Not on file documented as of this encounter Plan of Treatment Not on file documented as of this encounter Visit Diagnoses Not on filedocumented in this encounter Care Teams Citrus Picker Relationship Specialty Start Date End Date Olivier Jimenez MD [address] [place] [address] [place] [address] PCP - General 01/22/20 Cindy Kent, PhD [address] [place] [address] Psychology 06/15/20 documented as of this encounter
--- OUTSIDE RECORDS SUMMARY | 2025-03-19 17:33 | XMS_ITS | Encounter Summary ---
Author Organization [facility] Address [address] [place] [address] Care Team Providers Care Pump Servicer Helper Name Role Phone Olivier Jimenez MD Primary Care Provider [phone] Cindy Kent PhD Unavailable Encounter Details Date Type Department Care Team (Late st Contact Info) Description 01/30/2020 Scanned Document [facility] Urologic Surgery [address] [address] Olivier Jimenez MD [address] [place] [address] [place] [address] Social History Tobacco Use Types Packs/Day Years [...] on filedocumented in this encounter Care Teams Pump Servicer Helper Relationship Specialty Start Date End Date Olivier Jimenez MD [address] [place] [address] [place] [address] PCP - General 01/22/20 Cindy Kent, PhD [address] [place] [address] Psychology 06/15/20 documented as of this encounter
--- OUTSIDE RECORDS SUMMARY | 2025-03-19 17:33 | XMS_ITS | Clinical Summary ---
Author Organization [facility] Address [address] [place] [address] Care Team Providers Care Greenstone Polisher Operator Name Role Phone Olivier Jimenez MD Primary Care Provider [phone] Cindy Kent PhD Unavailable Allergies No known active allergies Medications finasteride (PROSCAR) 5 MG tablet 0 Active cloNIDine (CATAPRES) 0.1 MG tablet TAKE 2 TABLETS BY MOUTH FOR SLEEP NEEDED 0 Active lamoTRIgine (LaMICtal) 25 MG tablet TAKE 1 TABLET BY MOUTH DAILY FOR 2 WEEKS THEN 1 TABLET TWICE A DAY FOR 2 WEEKS THEN 1 TABLET IN THE MORNING AND AT 2:00 P.M 0 Active gabapentin (NEURONTIN) 100 MG capsule TAKE 1-3 CAPSULES BY MOUTH DAILY NEEDED FOR EXTREME ANXIETY 0 Active methylphenidate (CONCERTA) 18 MG CR tablet Take 18 mg by mouth daily. 0 Active nicotine polacrilex (NICORETTE) 4 MG gum 0 Active Turmeric 1053 MG Tab Take by mouth. Activ e sildenafil (VIAGRA) 100 MG tabletIndications :Prostate cancer (HCC) 1/2 tab nightly for penile rehab; 1 full pill 1 hour before sex 15 tablet 11 0 Active lamoTRIgine (LaMICtal) 100 MG tablet Take 100 mg by mouth daily. 0 Active docusate sodium (COLACE) 100 MG capsuleIndication s:Prostate CA (HCC) Take 1 capsule (100 mg total) by mouth 2 (two) times a day. 60 capsule 0 Active sulfamethoxazole- trimethoprim (BACTRIM DS,SEPTRA DS) 800-160 MG per tabletIndications :Prostate CA (HCC) Take 1 tablet by mouth 2 (two) times a day. START TAKING 1 DAY PRIOR TO CATHETER REMOVAL IN THE OFFICE. 6 tablet 0 Active melatonin 3 MG Tab tabletIndications :Prostate CA (HCC) Take 1 tablet (3 mg total) by mouth nightly. 14 tablet 0 Active oxyCODONE (ROXICODONE) 5 MG immediate release tabletIndications :Prostate CA (HCC) Take 1 tablet (5 mg total) by mouth every 4 (four) hours as needed for severe pain. Max Daily Amount: 30 mg 12 tablet 0 Active oxyCODONE-acetami nophen (PERCOCET) 5-325 mg per tabletIndications :Prostate cancer (HCC) Take 1-2 tablets by mouth 4 times daily (every 6 hours) as needed for moderate pain. Max Daily Amount: 8 tablets 12 tablet 0 Active sildenafil (REVATIO) 20 MG tabletIndications :Erectile dysfunction after radical prostatectomy Take 2 pills at bedtime. Take an additional 1-3 tablets prior to sexual activity as needed 90 tablet 11 0 Active traZODone (DESYREL) 100 MG tablet Take 100 mg by mouth nightly. 1 Active QUEtiapine (SEROquel) 50 MG tablet 1 Active methylphenidate (CONCERTA) 36 MG CR tablet 1 Active LORazepam (ATIVAN) 0.5 MG tablet TAKE ONE TABLET BY MOUTH NEEDED UP TO ONCE A DAY.. 1 Active tadalafil (CIALIS) 20 MG tabletIndications :Erectile dysfunction after radical prostatectomy Take 1 tablet (20 mg total) by mouth daily as needed for erectile dysfunction (One pill 2 hours before sex). 20 tablet 11 1 Active Active Problems Problem Noted Date Diagnosed Date History of prostate cancer 01/13/2021 Resolved Problems Problem Noted Date Diagnosed Date Resolved Date Prostate CA 05/26/2020 01/13/2021 Family History Medical History Relation Name Comments Colon cancer Father No Known Problems Maternal Aunt No Known Problems Maternal Uncle No Known Problems Mother No Known Problems Paternal Aunt No Known Problems Paternal Uncle Relation Name Status Comments Father Maternal Aunt Maternal Uncle Mother Paternal Aunt Paternal Uncle Social History Tobacco Use Types Packs/Day Years [...] Sign Reading Time Taken Comments Blood Pressure 137/86 06/03/2020 9:25 AM EST Pulse 76 06/03/2020 9:25 AM EST Temperature 36.1 C (97 F) 06/03/2020 9:25 AM EST Respiratory Rate 16 01/13/2021 11:15 AM EDT Oxygen Saturation 98% 06/03/2020 9:25 AM EST Inhaled Oxygen Concentration - - Weight 68 kg (150 lb) 01/13/2021 11:15 AM EDT Height 172.7 cm (5' 8 ) 01/13/2021 11:15 AM EDT Body Mass Index 22.81 01/13/2021 11:15 AM EDT Plan of Treatment Health Maintenance Due Date Last Done Comments Hepatitis C Virus Screening 1962 HIV Screening 1975 DTaP/Tdap/Td Vaccines (1 - Tdap) 1981 Colonoscopy 2007 Pneumococcal Vaccines 50+ (1 of 1 - PCV) 01/05/2012 Zoster (Shingles) Vaccine (1 of 2) 01/05/2012 RSV Vaccine 60 years and old er and Patients (1 - Risk 60-74 years 1-dose series) 2022 Influenza Vaccine 01/31/2025 COVID-19 Vaccine (1 - 2023-2 5 season) 2025 Hepatitis B Vaccines Aged Out No long er eligible based on patient's age to complete this topic Insurance [facility] Advance Directives * Full Code (Latest Code Status on File) Date Activated Date Inactivated Comments 05/26/2020 4:59 PM * Full Code Date Activated Date Inactivated Comments 05/26/2020 9:53 AM 05/26/2020 4:59 PM Care Teams Greenstone Polisher Operator Relationship Specialty Start Date End Date Olivier Jimenez MD [address] [place] [address] [place] [address] PCP - General 01/22/20 Cindy Kent, PhD [address] [place] [address] Psychology 06/15/20
--- OUTSIDE RECORDS SUMMARY | 2025-03-19 17:33 | XMS_ITS | Patient Health Record ---
Author Organization [facility] Address [address] [place] [address] Care Team Providers Care Aerospace Technician Name Role Phone Tony (RETIRED) Olivier YANCEY Primary Care Provide r Unavailable Phillip Lui Unavailable [phone] Reason For Referral No Information Immunizations Vaccine Route Administration Date Status Comme nts Influenza Unknown 07/31/2019 Refused Social History Tobacco Use: Social History Observation Description Date Details (start date - stop date) Never Smoker NA - NA Tobacco Use/Smoking Question Answer Notes Patient is a nonsmoker Alcohol Screen Question Answer Notes Did you have a drink containing alcohol in the p ast year? No Points 0 Interpretation Negative Section Notes: Nonsmoker but occasional venecia ws tobacco; no alcohol since 2017 Problems Problem Type SNOMED Code ICD Code Onset Dates Problem Status W/U Status Risk Notes Problem 500918805 Encounter for screening for malignant neoplasm of colon (Z12.11) Active confirmed Problem 662891647390561 Preprocedural examination (Z01.818) Active confirmed Problem 831209229 Family history o f colon cancer (Z80.0) Active confirmed Plan Of Treatment Future Test Test Name Order Date COLONOSCOPY 07/31/2019 Insurance Providers Payer Name Payer Address Payer Phone Subscriber Number Group Number Insured Name Patient Relationship to Insured Coverage Start Date Coverage End Date [facility] [address] [place] [address] [phone] [id number] SEKOU SALEEM Self - patient is the insured Medical (General) History Medical History History ICD Code Denies [place],DM,CVA,Lung disease,renal dise ase 3 neg. colonoscopies at [facility] starting at age 37, with his last one being at approx age 47 Prostate biopsy for an evalu ation of an elevated PSA on 07/30/[address] Min, III at [facility] History of depression requiring hospital izations Surgical History Surgery Date(Month/Year)
== END 2025-03-19 14:32 | disposition home or self-care (01) ==
LOC: HO.HMCHD 13:54
PROVIDERS: PCP Student in an Organized Health Care Education/Training Program; Visit Provider Student in an Organized Health Care Education/Training Program
DX: Z00.00 Encounter for general adult medical examination without abnormal findings (principal); R32 Unspecified urinary incontinence; R56.9 Unspecified convulsions; N52.31 Erectile dysfunction following radical prostatectomy; D18.00 Hemangioma unspecified site; F43.10 Post-traumatic stress disorder, unspecified; Z85.46 Personal history of malignant neoplasm of prostate

== ENCOUNTER 2025-03-19 13:53 | Outpatient (REF) | payer OTHER, SELFPAY ==
[2025-03-19 14:57] LABS: MANUAL DIFF FLAG NO
[2025-03-19 15:46] LABS: Hematocrit 44.9 % (42.0-52.0); Hemoglobin 15.9 g/dl (14.0-18.0); Imm Gran Abs Auto 0.02 X10*3/uL (0.00-0.03); Imm Gran Pct Auto 0.3 % (0.0-0.4); Lymphocytes Absolute Auto 1.2 X10*3/uL (1.2-4.9); Mean Corpuscular HGB Conc 35.4 g/dl (31.0-36.0); Mean Corpuscular Hemoglobin 32.9 pg (27.0-33.0); Mean Corpuscular Volume 92.8 fL (80.0-98.0); NRBC Abs Auto 0.000 X10*3/uL (0.0-0.012); NRBC Pct Auto 0.0 /100WBC (0.0-0.2); Platelet Count 208 X10*3/uL (160-400); Red Blood Count 4.84 X10*6/uL (4.60-5.80); White Blood Count 8.0 X10*3/uL (4.8-10.8)
[2025-03-19 16:18] LABS: Alanine Aminotransferase 17 U/L (0-40); Albumin Level 4.7 g/dL (3.5-5.0); Alkaline Phosphatase 116 U/L (39-117); Anion Gap 10 (12-20); Aspartate Amino Transferase 26 U/L (5-37); Blood Urea Nitrogen 14 mg/dL (9-16); Calcium 9.3 mg/dL (8.4-10.2); Carbon Dioxide 29 mmol/L (22-29); Chloride 109 mmol/L (96-108); Cholesterol 186 mg/dL (<200); Estimated Glomerular Filt Rate > 60; HDL Cholesterol 58 mg/dL (>40); Potassium 4.4 mmol/L (3.3-5.1); Sodium 144 mmol/L (135-145); Total Protein 7.0 g/dL (6.5-8.0); Triglycerides 81 mg/dL (<150)
[2025-03-19 16:22] LABS: Total Hemoglobin (HGBA1C) 4062.8355 umol/L
[2025-03-19 16:35] LABS: PSA,Total (Free>4and<10) < 0.10 ng/mL (0.00-4.00)
[2025-03-20 04:43] LABS: Syphilis Screen Nonreactive (Nonreactive)
[2025-03-20 05:55] LABS: HBS Num1 0.90 mIU/mL (0-7.99); HBc Num1 0.04 S/CO (0.00-0.79); HBsAGNum1 0.47 S/CO (0.00-0.99); HIV Num 1 0.03 S/CO (0.00-0.99); Hepatitis A Antibody IgM 0.13 Index (0-0.79); Hepatitis B Surface Antigen Negative (Negative); ~HepC Num1 0.07 S/CO (0.00-0.79); ~Hepatitis A Antibody IgM Nonreactive (Nonreactive); ~Hepatitis B Surface Antibody NONREACTIVE (Nonreactive); ~Hepatitis C Antibody Nonreactive (Nonreactive)
== END 2025-03-19 13:54 | disposition home or self-care (01) ==
LOC: HO.LAB 13:53
PROVIDERS: PCP Student in an Organized Health Care Education/Training Program; Visit Provider Student in an Organized Health Care Education/Training Program
DX: Z76.89 Persons encountering health services in other specified circumstances (principal); Z12.5 Encounter for screening for malignant neoplasm of prostate; R56.9 Unspecified convulsions; D18.00 Hemangioma unspecified site; F43.10 Post-traumatic stress disorder, unspecified; N52.31 Erectile dysfunction following radical prostatectomy; R32 Unspecified urinary incontinence; Z85.46 Personal history of malignant neoplasm of prostate
CPT/HCPCS: 36415; 80053; 80061; 82306; 83036; 84153; 84443; 85025; 86704; 86706; 86709; 86780; 86803; 87340; 87389; 96127